=== PATIENT | female | born 1945 | race Caucasian/White ===

== ENCOUNTER → 2016-09-08 | Outpatient (CLI) | payer OTHER, MEDICARE | LOC: MMPC 11:11 | PROVIDERS: ATTEND Internal Medicine | DX: E03.9 Hypothyroidism, unspecified (principal); I10 Essential (primary) hypertension; I48.91 Unspecified atrial fibrillation; E78.2 Mixed hyperlipidemia | CPT/HCPCS: 99214; G0463 ==